=== PATIENT | female | born 1980 | race Caucasian/White ===

== ENCOUNTER → 2018-06-18 | Outpatient (CLI) | payer BC ==
--- NOTE | 2018-06-18 17:20 | PCVCIMAG ---
APPROVED REPORT Study performed: 06/18/2018 16:31:17 EXAM: Comprehensive 2D, Doppler, and color-flow Echocardiogram Patient Location: Echo lab Status: routine BSA: 1.58 HR: 67 bpmBP: 108/62 mmHg Rhythm: NSR Other Information Study Quality: Good Risk Factors: Cardiac Risk Factors: Hyperlipidemia Indications Chest Tightness 2D Dimensions IVSd: 6.86 (7-11mm)LVOT Diam: 19.00 (18-24mm) LVDd: 47.72 mm PWd: 6.98 (7-11mm)Ascending Ao: 25.68 (22-36mm) LVDs: 31.29 (25-40mm) Left Atrium: 29.47 (27-40mm) Aortic Root: 27.21 mm LV Single Plane 4CH: 66.44 % LV Single Plane 2CH: 66.70 % Biplane EF: 65.4 % Volumes Left Atrial Volume (Systole) Single Plane 4CH: 32.29 mLSingle Plane 2CH: 26.56 mL LA ESV Index: 21.00 mL/m2 Aortic Valve AoV Peak Samm.: 1.32 m/s AO Peak Gr.: 6.97 mmHgLVOT Max P.54 mmHg LVOT Max V: 1.28 m/s BROOKS Vmax: 2.89 cm2 Mitral Valve E/A Ratio: 1.7 MV Decel. Time: 247.81 ms MV E Max Samm.: 0.99 m/s MV A Samm.: 0.57 m/s MV PHT: 71.87 ms IVRT: 41.52 ms TDI E/Lateral E': 6.60E/Medial E': 6.60 Medial E' Samm.: 0.15 m/s Lateral E' Samm.: 0.15 m/s Pulmonary Valve PV Peak Samm.: 0.82 m/sPV Peak Gr.: 2.68 mmHg Pulmonary Vein P Vein S: 0.65 m/sP Vein A: 0.32 m/s P Vein D: 0.60 m/sP Vein A Dur.: 103.8 msec P Vein S/D Ratio: 1.08 Tricuspid Valve TR Peak Samm.: 2.25 m/sRAP Estimate: 7.00 mmHg TR Peak Gr.: 20.24 mmHg PA Pressure: 30.00 mmHg Left Ventricle The left ventricle is normal size. There is normal LV segmental wall motion. There is normal left ventricular wall thickness. Left ventricular systolic function is normal. The left ventricular ejection fraction is within the normal range. LVEF is 65%. The left ventricular diastolic function is normal. Right Ventricle The right ventricle is normal size. The right ventricular systolic function is normal. Atria The left atrium size is normal. The right atrium size is normal. Aortic Valve The aortic valve is normal in structure, trileaflet No aortic regurgitation is present. There is no aortic valvular stenosis. Mitral Valve The mitral valve is normal in structure. Trace to mild mitral regurgitation. No evidence of mitral valve stenosis. Tricuspid Valve The tricuspid valve is normal in structure. Trace tricuspid regurgitation. Pulmonary artery pressure is 30 mmHg. Pulmonic Valve The pulmonary valve is normal in structure. Mild pulmonic regurgitation. Great Vessels The aortic root is normal in size. IVC is normal in size and collapses >50% with inspiration. Pericardium There is no pericardial effusion. <Conclusion> Left ventricular systolic function is normal. There is normal LV segmental wall motion. LVEF is 65%. Normal diastolic function The aortic valve is normal in structure, trileaflet. No aortic regurgitation or stenosis The mitral valve is normal in structure. Trace to mild mitral regurgitation. Trace tricuspid regurgitation. Pulmonary artery pressure is 30 mmHg. There is no pericardial effusion.
== END | disposition home or self-care (01) ==
LOC: PCVCIMAG 16:08
PROVIDERS: ATTEND Internal Medicine
DX: I37.1 Nonrheumatic pulmonary valve insufficiency (principal); R07.89 Other chest pain; R07.2 Precordial pain; E78.5 Hyperlipidemia, unspecified
CPT/HCPCS: 93306